=== PATIENT | female | born 1950 | race Caucasian/White ===

== ENCOUNTER 2016-05-31 14:30 | Inpatient (IN) | payer BC ==
[~2016-05-31] VITALS: Ht 157.5 cm; Wt 73.5 kg
[~2016-05-31 14:30] MED LIST: CIPRO500 MG PO; CRESTOR20 M1 PO; CYMBALTA60 M1 PO; ECO81 PO; FELDENE20 MG PO; GLU850 PO; LAC PO; LEVAQUIN LEVA-750 M1 PO; LYRICA75 M1 PO; MEDDP PO; VICODIN1 TA1 PO; VOL50 PO; ZESTRIL20 MG PO; ZOC20 PO
[2016-05-31 15:32] LABS: CALCIUM 9.9 mg/dL (8.5-10.1); CARBON DIOXIDE 23.7 mmol/L (21-32); CREATININE SERUM 1.3 mg/dL (0.6-1.0); POTASSIUM SERUM 4.1 mmol/L (3.5-5.1)
[2016-05-31 15:36] LABS: microscopic required? NO
[2016-05-31 15:37] LABS: ALBUMIN 3.3 g/dL (3.4-5.0); BILIRUBIN TOTAL 0.6 mg/dL (0.20-1.00)
[2016-05-31 15:38] LABS: BASOPHIL % 0.6 % (0-2); PLATELET COUNT 358 x10^3mcL (130-400); RED CELL DISTRIBUTION WIDTH 13.6 % (11.5-14.5)
[2016-05-31 16:09] LABS: UA SPECIFIC GRAVITY 1.025 (1.005-1.035); urine erythrocyte NEGATIVE (NEGATIVE)
[2016-05-31] MEDS ORDERED: LYRICA75 M1 PO (17:45)
[2016-05-31 18:29] VITALS: BP 153/56
[2016-05-31 18:36] LABS: T3 TOTAL 1.11 ng/mL
[2016-05-31 18:39] VITALS: Ht 157.5 cm; Wt 73.5 kg
[2016-05-31 18:46] LABS: CHOLESTEROL/HDL RATIO 3.7
[2016-05-31 19:05] LABS: FREE T4 1.28 ng/dL (0.76-1.46); FREE THYROXINE INDEX 2.9 ug/dL (1.4-4.5); T4(THYROXINE) 8.3 ug/dL (4.7-13.3)
[2016-05-31 19:30] VITALS: BP 132/50
[2016-05-31 21:33] VITALS: BP 141/68
[2016-06-01 06:10] VITALS: BP 121/50
[2016-06-01 06:36] LABS: BASOPHIL % 0.4 % (0-2); PLATELET COUNT 280 x10^3mcL (130-400); RED CELL DISTRIBUTION WIDTH 13.3 % (11.5-14.5)
[2016-06-01 06:45] LABS: CALCIUM 8.6 mg/dL (8.5-10.1); CARBON DIOXIDE 24.6 mmol/L (21-32); CREATININE SERUM 1.2 mg/dL (0.6-1.0); MAGNESIUM 1.8 mg/dL (1.8-2.4); PHOSPHOROUS 3.8 mg/dL (2.5-4.9)
[2016-06-01 09:06] VITALS: BP 121/50
[2016-06-01 09:25] LABS: CK-MB 1.2 ng/mL (0-3.6)
[2016-06-01 10:00] VITALS: BP 125/61
[2016-06-01 14:00] VITALS: BP 122/72
[2016-06-01 18:18] VITALS: BP 133/65
[2016-06-01 21:29] VITALS: BP 129/57
[2016-06-02 05:49] VITALS: BP 149/75
[2016-06-02 06:23] LABS: CALCIUM 8.5 mg/dL (8.5-10.1); CARBON DIOXIDE 25.4 mmol/L (21-32); CREATININE SERUM 1.2 mg/dL (0.6-1.0); MAGNESIUM 1.8 mg/dL (1.8-2.4); PHOSPHOROUS 4.1 mg/dL (2.5-4.9); POTASSIUM SERUM 4.2 mmol/L (3.5-5.1)
[2016-06-02 07:09] LABS: BASOPHIL % 0.4 % (0-2); PLATELET COUNT 233 x10^3mcL (130-400); RED CELL DISTRIBUTION WIDTH 13.8 % (11.5-14.5)
[2016-06-02 09:48] VITALS: BP 141/64
[2016-06-02 12:08] LABS: AMPHETAMINE QUAL UR NONE DETECTED (NEG <=1000)
[2016-06-02 14:03] VITALS: BP 158/79
[2016-06-02] MEDS ORDERED: VICODIN PO (16:14)
[2016-06-02 16:15] VITALS: BP 158/79
== END 2016-06-02 17:47 | disposition home health service (06) | DRG 312 ==
LOC: ED 14:30 → DU 16:31 → MU 16:31 → DU 16:31 → MU 16:31 → DU 18:04 → MU 06-02 05:07
PROVIDERS: Emergency Medicine; Family Medicine; ADMIT Family Medicine
DX: R55 Syncope and collapse (principal); E44.0 Moderate protein-calorie malnutrition; B35.6 Tinea cruris; R15.9 Full incontinence of feces; R32 Unspecified urinary incontinence; M79.7 Fibromyalgia; M25.562 Pain in left knee; M25.561 Pain in right knee; G89.29 Other chronic pain; I10 Essential (primary) hypertension; J44.9 Chronic obstructive pulmonary disease, unspecified; E78.5 Hyperlipidemia, unspecified; F17.210 Nicotine dependence, cigarettes, uncomplicated; Z68.29 Body mass index [BMI] 29.0-29.9, adult; R51 Headache
CPT/HCPCS: 80307; 82962; 83880; 84439; 97110-GP; 97116-GP; 97530-GP; J7030; J7613; Q0092

== ENCOUNTER 2016-06-08 05:12 | Emergency (ER) | payer BC ==
[~2016-06-08 05:12] MED LIST changes: +VICODIN PO
[2016-06-08 06:55] LABS: BASOPHIL % 0.2 % (0-2); PLATELET COUNT 250 x10^3mcL (130-400); RED CELL DISTRIBUTION WIDTH 13.8 % (11.5-14.5)
[2016-06-08 06:58] LABS: CALCIUM 9.3 mg/dL (8.5-10.1); CREATININE SERUM 1.3 mg/dL (0.6-1.0); POTASSIUM SERUM 4.4 mmol/L (3.5-5.1)
--- NOTE | 2016-06-08 15:53 | NUR ---
YULIANA, OPHTHALMIC ASST 06/08/16 12:00 SW CONSULT DUE TO HOME SAFETY CONCERNS. SW MET W/ PT. AT BEDSIDE. PT. IS A READMIT FROM A FEW DAYS AGO & IS WELL KNOWN TO THIS SW. SHE WAS A&OX4. MOOD/ AFFECT WAS LOW IN ENERGY, REPORTING PAIN, BUT COOPERATIVE. REPORTS SHE FELL OUT OF BED AT HOME & WAS UNABLE TO GET UP. [facility]ALTH PHYSICAL THERAPY NEVER FOLLOWED-UP W/ HER UPON DC. SW DISCUSSED SNF PLACEMENT DUE TO PT'S MULTIPE FALLS, FAILED HOME HEALTH PLAN, & INCREASED WEAKNESS. PT. RECOGNIZES HER COMPROMIZED STATE & INABILITY TO MANAGE ON HER OWN AT THIS TIME. SHE HAS NO SUPPORT & STATES SHE HAS NOT SPOKEN W/ HER CIVIL ENGINEERING TECHNICIAN SINCE. SHE WAS AGREEABLE TO SNF PLACEMENT NOW. SW CONTACTED KENAN FELIPE AT [facility] [[phone]] & FAXED CLINICALS TO [facility]. TC TO GILMA AT [facility] [[phone]] & CONFIRMED PT. HAS BEEN ACCEPTED TO . 119B. ACCEPTING PHYSICIAN IS DR. GRIMALDO. ARRANGED GURNEY TRANSPORT W/ [facility] AT 17:00 TODAY. COLLAR CUTTER [LAMAR] & FOLLOWING RN [] NOTIFIED OF THE ABOVE DCP.
[2016-06-08 18:37] VITALS: BP 157/87
== END 2016-06-08 18:37 | disposition home or self-care (01) ==
LOC: ED 05:12
PROVIDERS: Emergency Medicine
DX: S39.012A Strain of muscle, fascia and tendon of lower back, initial encounter (principal); S16.1XXA Strain of muscle, fascia and tendon at neck level, initial encounter; S40.012A Contusion of left shoulder, initial encounter; I10 Essential (primary) hypertension; R51 Headache; J44.9 Chronic obstructive pulmonary disease, unspecified; M19.90 Unspecified osteoarthritis, unspecified site; M79.7 Fibromyalgia; Z88.1 Allergy status to other antibiotic agents; Z88.2 Allergy status to sulfonamides; W06.XXXA Fall from bed, initial encounter; Y93.84 Activity, sleeping; Y92.89 Other specified places as the place of occurrence of the external cause; Y99.8 Other external cause status

== ENCOUNTER 2016-06-23 08:05 | Emergency (ER) | payer BC ==
--- NOTE | 2016-06-23 15:01 | NUR ---
SOCIAL SERVICE NOTE: FOLLOW-UP REQUESTED FOR THIS PT WHO CAME INTO THE ER S/P FALL AT HOME. PT IS FAMILIAR TO ME FROM PREVIOUS HOSPITAL VISITS. SHE LIVES ALONE AND HAS NO FAMILY. SUPPORT SYSTEM IS LIMITED. SHE CANNOT AFFORD TO PAY FOR HOME CARE AND SHE IS NOT ELIGIBLE FOR THE [facility] PROGRAM ([facility]) SHE IS NORMALLY CAPABLE OF CARING FOR HERSELF BUT HAS HAD MULTIPLE FALLS WELL CHRONIC PAIN ISSUES. IN SPITE OF HER INCREASING NEED FOR HELP AND HER AWARENESS THAT HER HOME ENVIRONMENT MAY NOT BE SAFE FOR HER, SHE HAS RESISTED LOOKING AT OTHER OPTIONS. ADULT PROTECTIVE SERVICES HAS BEEN CALLED IN THE PAST A RESULT. I MET WITH THE PT AT BEDSIDE. SHE WAS A/O AND SOMEWHAT COPERATIVE WITH THE DISCUSSION. SHE DID NOT VOLUNTEER INFORMATION BUT WAS ABLE TO ANSWER QUESTIONS APPROPRIATELY. SHE CONTINUES TO SAY THAT SHE CANNOT AFFORD TO PAY FOR ASSISTANCE AND DOES NOT WANT TO GO TO A LONG-TERM CELEBRITY MANAGER, WHICH WOULD ALSO REQUIRE THAT SHE APPLY FOR MEDI-KANDIS, WHICH SHE HAS NOT PURSUED. I REVIEWED ALL AVAILABLE OPTIONS TO HER BUT SHE WAS MOSTLY FOCUSED ON HOW "UNFAIR" HER SITUATION WAS. I EXPLAINED THAT WE HAVE BEEN IN CONTACT WITH HER INSURANCE AND THEY WILL NOT APPROVE ANOTHER LONG-TERM PLAN NOR WILL THEY COVER HER TRANSPORTATION HOME. THEY WILL COVER A SINGLE NURSING SAFETY VISIT THROUGH [facility]. I OFFERED TO MAKE TRANPORTATION ARRANGEMENTS FOR HER EITHER WITH HER FRIEND, FILIBERTO, OR WITH A MEDICAL VAN AND SHE WAS AGREEABLE. I ALSO OFFERED TO ARRANGE FOR THE HOSPITAL MEDI-KANDIS COORDINATOR (LEANNA FROM [facility]) TO CONTACT HER ONCE SHE GETS HOME TO ASSIST WITH AN APPLICATION WELL HAVE A BOARD AND MERCURY PURIFIER, ALEC FROM "[facility]", CONTACT HER TO ASSIST WITH POSSIBLE PLACEMENT ALTERNATIVES.SHE WAS AGREEABLE WITH BOTH OF THESE SUGGESTIONS AND WILLING TO SPEAK WITH BOTH LEANNA AND ALEC. I INFORMED HER THAT I WILL BE MAKING ANOTHER REFERRAL TO ADULT PROTECTIVE SERVICES TO ASSESS HER SAFETY NEEDS. (APS REFERRAL/INTAKE # [id number]) I CONTACTED [facility]PS AND SPOKE WITH MARI ([phone]) WHO HAS FOLLOWED THIS PT IN THE RECENT PAST. SHE REQUESTED THAT I MAKE A NEW REFERRAL TODAY WHICH WAS DONE. I SPOKE WITH LEANNA AND ALEC, AND THEY WILL FOLLOW WITH THE PT BY PHONE TOMORROW TO SEE HOW THEY CAN ASSIST HER WITH HER NEEDS. I MADE ARRANGEMENTS FOR PT TO BE TRANSPORTED BY [facility] ([phone]) WITH A 1700 PICK-UP. I DID SPEAK WITH THE PT'S FRIEND, FILIBERTO, WELL ([phone]). HE INDICATED THAT HE LIVES IN [place] AND IS NOT WELL TODAY AND THEREFORE, UNABLE TO TRANSPORT. HE DID AGREE TO FOLLOW-UP WITH THE PT LATER THIS EVENING TO ENSURE THAT SHE GOT HOME OK. NURSING MADE AWARE OF THE ABOVE. NO FURTHER FOLLOW-UP NEEDED AT THIS TIME.
[2016-06-23 17:30] VITALS: BP 140/100
== END 2016-06-23 18:43 | disposition home or self-care (01) ==
LOC: ED 08:05
DX: S40.012A Contusion of left shoulder, initial encounter (principal); I10 Essential (primary) hypertension; J44.9 Chronic obstructive pulmonary disease, unspecified; M79.7 Fibromyalgia; M19.90 Unspecified osteoarthritis, unspecified site; E11.9 Type 2 diabetes mellitus without complications; W06.XXXA Fall from bed, initial encounter; Z88.0 Allergy status to penicillin; Z88.1 Allergy status to other antibiotic agents; Z88.2 Allergy status to sulfonamides; Y93.89 Activity, other specified; Y99.8 Other external cause status; Y92.89 Other specified places as the place of occurrence of the external cause
CPT/HCPCS: Q0092

== ENCOUNTER 2016-10-23 22:07 | Inpatient (IN) | payer BC ==
[~2016-10-23] VITALS: Ht 154.9 cm; Wt 73.2 kg
[~2016-10-23 22:07] MED LIST changes: +ANC1I IV; +LIPI20 PO; +NOR10T PO; +XARELTO15 M1 PO
[2016-10-23 22:54] LABS: BASOPHIL % 0.5 % (0-2); RED CELL DISTRIBUTION WIDTH 13.5 % (11.5-14.5)
[2016-10-23 23:05] LABS: PLATELET COUNT 437 x10^3mcL (130-400)
[2016-10-23 23:10] LABS: CALCIUM 9.8 mg/dL (8.5-10.1); CARBON DIOXIDE 19.1 mmol/L (21-32); CREATININE SERUM 1.4 mg/dL (0.6-1.0); POTASSIUM SERUM 4.1 mmol/L (3.5-5.1)
[2016-10-23 23:24] LABS: BILIRUBIN TOTAL 0.46 mg/dL (0.20-1.00); TOTAL PROTEIN, SERUM 7.5 g/dL (6.4-8.2)
[2016-10-23 23:25] LABS: ALBUMIN 3.1 g/dL (3.4-5.0)
[2016-10-23 23:26] LABS: CK-MB 1.2 ng/mL (0-3.6)
[2016-10-24] VITALS (8 sets, daily range): BP systolic 86–119; BP diastolic 41–69
[2016-10-24 00:47] LABS: microscopic required? YES; urine erythrocyte TRACE (NEGATIVE)
[2016-10-24 01:35] LABS: MAGNESIUM 2.6 mg/dL (1.8-2.4); PHOSPHOROUS 4.7 mg/dL (2.5-4.9)
[2016-10-24 01:37] LABS: CHOLESTEROL/HDL RATIO 6.3
[2016-10-24 02:03] LABS: FREE THYROXINE INDEX 2.6 ug/dL (1.4-4.5); T4(THYROXINE) 6.7 ug/dL (4.7-13.3)
[2016-10-24 02:06] LABS: FREE T4 1.15 ng/dL (0.76-1.46)
[2016-10-24 02:54] LABS: T3 TOTAL 0.92 ng/mL
[2016-10-25 05:46] VITALS: BP 100/52
[2016-10-25 06:35] LABS: BASOPHIL % 0.5 % (0-2); PLATELET COUNT 309 x10^3mcL (130-400); RED CELL DISTRIBUTION WIDTH 13.4 % (11.5-14.5)
[2016-10-25 07:11] LABS: CALCIUM 8.5 mg/dL (8.5-10.1); CARBON DIOXIDE 21.3 mmol/L (21-32); CREATININE SERUM 1.4 mg/dL (0.6-1.0); PHOSPHOROUS 4.2 mg/dL (2.5-4.9); POTASSIUM SERUM 4.2 mmol/L (3.5-5.1)
[2016-10-25 08:18] VITALS: BP 95/54
[2016-10-25 12:53] VITALS: BP 103/43
[2016-10-25 17:05] VITALS: BP 127/58
[2016-10-25 21:38] VITALS: BP 103/45
[2016-10-26 05:56] VITALS: BP 116/58
[2016-10-26 07:13] LABS: CALCIUM 8.7 mg/dL (8.5-10.1); CREATININE SERUM 1.2 mg/dL (0.6-1.0)
[2016-10-26 07:33] LABS: BASOPHIL % 0.6 % (0-2); PLATELET COUNT 313 x10^3mcL (130-400); RED CELL DISTRIBUTION WIDTH 13.6 % (11.5-14.5)
[2016-10-26 09:33] VITALS: BP 117/50
[2016-10-26 13:33] VITALS: BP 108/60
[2016-10-26 17:44] VITALS: BP 111/69
[2016-10-26 21:45] VITALS: BP 106/44
[2016-10-27 06:25] VITALS: BP 102/42
[2016-10-27 06:31] LABS: BASOPHIL % 0.4 % (0-2); PLATELET COUNT 305 x10^3mcL (130-400); RED CELL DISTRIBUTION WIDTH 13.6 % (11.5-14.5)
[2016-10-27 06:37] LABS: CALCIUM 8.6 mg/dL (8.5-10.1); CARBON DIOXIDE 19.7 mmol/L (21-32); CREATININE SERUM 1.3 mg/dL (0.6-1.0)
[2016-10-27 06:38] LABS: POTASSIUM SERUM 5.7 mmol/L (3.5-5.1)
[2016-10-27 09:09] VITALS: BP 124/57
[2016-10-27 14:01] VITALS: BP 137/66
[2016-10-27 17:02] VITALS: BP 120/57
[2016-10-27 22:03] VITALS: BP 135/67
[2016-10-28 08:55] LABS: CALCIUM 8.9 mg/dL (8.5-10.1); CARBON DIOXIDE 23.7 mmol/L (21-32); CREATININE SERUM 1.2 mg/dL (0.6-1.0)
[2016-10-28 08:59] LABS: BASOPHIL % 0.4 % (0-2); PLATELET COUNT 291 x10^3mcL (130-400); RED CELL DISTRIBUTION WIDTH 13.5 % (11.5-14.5)
[2016-10-28 10:21] VITALS: BP 96/45
[2016-10-28 16:43] VITALS: BP 124/57
[2016-10-28 21:58] VITALS: BP 110/50
[2016-10-29 05:39] VITALS: BP 115/49
[2016-10-29 06:07] LABS: BASOPHIL % 0.4 % (0-2); PLATELET COUNT 314 x10^3mcL (130-400); RED CELL DISTRIBUTION WIDTH 13.6 % (11.5-14.5)
[2016-10-29 06:31] LABS: CALCIUM 9.3 mg/dL (8.5-10.1); CARBON DIOXIDE 20.4 mmol/L (21-32); CREATININE SERUM 1.2 mg/dL (0.6-1.0); POTASSIUM SERUM 4.7 mmol/L (3.5-5.1)
[2016-10-29 09:00] VITALS: BP 156/64
[2016-10-29 15:11] VITALS: BP 156/64
[2016-10-29 23:06] VITALS: BP 117/55
[2016-10-30 05:33] VITALS: BP 122/71
[2016-10-30 07:03] LABS: BASOPHIL % 0.3 % (0-2); PLATELET COUNT 310 x10^3mcL (130-400); RED CELL DISTRIBUTION WIDTH 13.7 % (11.5-14.5)
[2016-10-30 07:48] LABS: CALCIUM 9.1 mg/dL (8.5-10.1); CARBON DIOXIDE 24.7 mmol/L (21-32); CREATININE SERUM 1.3 mg/dL (0.6-1.0); POTASSIUM SERUM 4.6 mmol/L (3.5-5.1)
[2016-10-30 09:33] VITALS: BP 147/66
[2016-10-30 17:44] VITALS: BP 115/79
[2016-10-30 21:52] VITALS: BP 97/49
[2016-10-31 05:28] VITALS: BP 104/46
[2016-10-31 07:18] LABS: BASOPHIL % 0.5 % (0-2); PLATELET COUNT 303 x10^3mcL (130-400); RED CELL DISTRIBUTION WIDTH 14.1 % (11.5-14.5)
[2016-10-31 07:33] LABS: CALCIUM 8.6 mg/dL (8.5-10.1); CARBON DIOXIDE 22.7 mmol/L (21-32); CREATININE SERUM 1.1 mg/dL (0.6-1.0); POTASSIUM SERUM 4.4 mmol/L (3.5-5.1)
[2016-10-31 08:46] VITALS: BP 98/52
[2016-10-31 17:30] VITALS: BP 145/58
[2016-11-01 05:26] VITALS: BP 133/55
[2016-11-01 06:33] LABS: CALCIUM 8.8 mg/dL (8.5-10.1); CARBON DIOXIDE 24.4 mmol/L (21-32); CREATININE SERUM 1.2 mg/dL (0.6-1.0); POTASSIUM SERUM 4.7 mmol/L (3.5-5.1)
[2016-11-01 06:35] LABS: BASOPHIL % 0.6 % (0-2); PLATELET COUNT 287 x10^3mcL (130-400); RED CELL DISTRIBUTION WIDTH 13.8 % (11.5-14.5)
[2016-11-01 10:01] VITALS: BP 118/48
[2016-11-01 17:36] VITALS: BP 113/59
[2016-11-01 22:17] VITALS: BP 135/52
[2016-11-02 05:54] VITALS: BP 142/56
[2016-11-02 06:51] LABS: BASOPHIL % 0.7 % (0-2); PLATELET COUNT 268 x10^3mcL (130-400); RED CELL DISTRIBUTION WIDTH 13.7 % (11.5-14.5)
[2016-11-02 07:11] LABS: CALCIUM 8.9 mg/dL (8.5-10.1); CARBON DIOXIDE 27.8 mmol/L (21-32); CREATININE SERUM 1.1 mg/dL (0.6-1.0)
[2016-11-02 10:00] VITALS: BP 128/54
[2016-11-02 16:50] VITALS: BP 143/55
[2016-11-02 21:53] VITALS: BP 129/43
[2016-11-03 05:27] VITALS: BP 123/53
[2016-11-03 09:56] VITALS: BP 123/53
[2016-11-03 10:03] VITALS: BP 135/55
[2016-11-03 16:03] VITALS: BP 135/55
[2016-11-03] MEDS ORDERED: COL100 PO (16:05)
[2016-11-03] MEDS ORDERED: BEN50 PO (16:11)
[2016-11-03] MEDS ORDERED: PROTONIX40 MG/Pac1 PO (16:11)
[2016-11-03] MEDS ORDERED: LINEZOLID600 MG PO ×2 (18:16→18:23)
[2016-11-03] MEDS ORDERED: CLINDAMYCIN HC300 MG PO (18:16)
[2016-11-03 18:54] VITALS: BP 134/59
== END 2016-11-03 21:12 | DRG 853 ==
LOC: ED 22:07 → MU 23:49 → DU 23:49 → MU 23:49 → DU 10-24 01:50 → MU 10-26 16:15
PROVIDERS: Emergency Medicine; Family Medicine; ADMIT Family Medicine
PROC: 0JBM0ZZ Excision of Left Upper Leg Subcutaneous Tissue and Fascia, Open Approach (ICD-10-PCS; principal; 2016-10-26)
DX: A41.9 Sepsis, unspecified organism (principal); L89.223 Pressure ulcer of left hip, stage 3; N17.0 Acute kidney failure with tubular necrosis; L03.116 Cellulitis of left lower limb; L03.314 Cellulitis of groin; N39.0 Urinary tract infection, site not specified; E44.0 Moderate protein-calorie malnutrition; R65.20 Severe sepsis without septic shock; B95.2 Enterococcus as the cause of diseases classified elsewhere; B96.89 Other specified bacterial agents as the cause of diseases classified elsewhere; I12.9 Hypertensive chronic kidney disease with stage 1 through stage 4 chronic kidney disease, or unspecified chronic kidney disease; N18.3 Chronic kidney disease, stage 3 (moderate); E86.0 Dehydration; E11.51 Type 2 diabetes mellitus with diabetic peripheral angiopathy without gangrene; M79.7 Fibromyalgia; E78.5 Hyperlipidemia, unspecified; F41.1 Generalized anxiety disorder; F32.9 Major depressive disorder, single episode, unspecified; F17.210 Nicotine dependence, cigarettes, uncomplicated; E66.9 Obesity, unspecified; Z68.30 Body mass index [BMI] 30.0-30.9, adult; Z22.322 Carrier or suspected carrier of Methicillin resistant Staphylococcus aureus; Z16.24 Resistance to multiple antibiotics
CPT/HCPCS: 82962; 83880; 84439; 94150; 97110-GP; 97116-GP; 97530-GP; A6242; J0690; J0696; J1170; J1956; J2001; J2270; J2405; J3490; J7030; J7613; Q0092; Q0163

== ENCOUNTER 2018-02-27 14:30 | Inpatient (IN) | payer BC ==
[~2018-02-27] VITALS: Ht 157.5 cm; Wt 75.3 kg
[~2018-02-27 14:30] MED LIST changes: +BEN50 PO; +CLINDAMYCIN HC300 MG PO; +COL100 PO; +LINEZOLID600 MG PO; +PROTONIX40 MG/Pac1 PO
[2018-02-27 15:45] LABS: BASOPHIL % 0.4 % (0-2); PLATELET COUNT 265 x10^3mcL (130-400); RED CELL DISTRIBUTION WIDTH 12.7 % (11.5-14.5)
[2018-02-27 15:53] LABS: CALCIUM 9.8 mg/dL (8.5-10.1); CARBON DIOXIDE 22.3 mmol/L (21-32); CREATININE SERUM 1.2 mg/dL (0.6-1.0); POTASSIUM SERUM 4.5 mmol/L (3.5-5.1)
[2018-02-27 16:09] LABS: ALBUMIN 3.3 g/dL (3.4-5.0); BILIRUBIN TOTAL 0.2 mg/dL (0.20-1.00); TOTAL PROTEIN, SERUM 7.3 g/dL (6.4-8.2)
[2018-02-27 16:16] LABS: microscopic required? YES; urine erythrocyte 3+ (NEGATIVE)
[2018-02-27 20:13] LABS: MAGNESIUM 2.1 mg/dL (1.8-2.4); PHOSPHOROUS 3.6 mg/dL (2.5-4.9)
[2018-02-27 20:23] LABS: FREE T4 0.81 ng/dL (0.76-1.46); FREE THYROXINE INDEX 1.9 ug/dL (1.4-4.5); T4(THYROXINE) 5.8 ug/dL (4.7-13.3)
[2018-02-27 20:25] LABS: T3 TOTAL 0.97 ng/mL
[2018-02-27 21:45] VITALS: BP 145/85
[2018-02-28 05:59] VITALS: BP 117/63
[2018-02-28 06:13] LABS: BASOPHIL % 0.4 % (0-2); PLATELET COUNT 248 x10^3mcL (130-400); RED CELL DISTRIBUTION WIDTH 12.4 % (11.5-14.5)
[2018-02-28 06:31] LABS: CALCIUM 8.7 mg/dL (8.5-10.1); CARBON DIOXIDE 24.8 mmol/L (21-32); MAGNESIUM 1.8 mg/dL (1.8-2.4); PHOSPHOROUS 3.2 mg/dL (2.5-4.9); POTASSIUM SERUM 4.7 mmol/L (3.5-5.1)
[2018-02-28 09:16] VITALS: BP 113/42
[2018-02-28 17:28] VITALS: BP 113/53
[2018-02-28 22:03] VITALS: BP 119/60
[2018-03-01 06:07] VITALS: BP 130/46
[2018-03-01 06:32] LABS: CALCIUM 8.7 mg/dL (8.5-10.1); CARBON DIOXIDE 21.1 mmol/L (21-32); CREATININE SERUM 1.2 mg/dL (0.6-1.0); MAGNESIUM 1.7 mg/dL (1.8-2.4); POTASSIUM SERUM 4.5 mmol/L (3.5-5.1)
[2018-03-01 06:39] LABS: BASOPHIL % 0.1 % (0-2); PLATELET COUNT 238 x10^3mcL (130-400); RED CELL DISTRIBUTION WIDTH 12.7 % (11.5-14.5)
[2018-03-01 09:21] VITALS: BP 144/65
[2018-03-01 13:18] VITALS: BP 111/54
[2018-03-01 16:43] VITALS: BP 125/63
[2018-03-01 22:12] VITALS: BP 113/48
[2018-03-02 06:06] VITALS: BP 150/60
[2018-03-02 06:17] LABS: BASOPHIL % 0.5 % (0-2); PLATELET COUNT 220 x10^3mcL (130-400); RED CELL DISTRIBUTION WIDTH 12.5 % (11.5-14.5)
[2018-03-02 07:01] LABS: CALCIUM 8.6 mg/dL (8.5-10.1); CARBON DIOXIDE 22.2 mmol/L (21-32); CREATININE SERUM 1.2 mg/dL (0.6-1.0); MAGNESIUM 1.8 mg/dL (1.8-2.4); PHOSPHOROUS 3.4 mg/dL (2.5-4.9); POTASSIUM SERUM 4.4 mmol/L (3.5-5.1)
[2018-03-02 08:17] VITALS: BP 140/62
[2018-03-02 12:18] VITALS: BP 137/58
[2018-03-02 16:15] VITALS: BP 153/74
[2018-03-02 21:55] VITALS: BP 120/52
[2018-03-03 04:30] VITALS: BP 136/69
[2018-03-03 10:29] VITALS: BP 114/43
[2018-03-03 14:01] VITALS: BP 116/57
[2018-03-03 17:42] VITALS: BP 116/57
[2018-03-03 18:24] VITALS: Ht 157.5 cm; Wt 75.3 kg
== END 2018-03-03 18:06 | disposition home or self-care (01) | DRG 377 ==
LOC: ED 14:30 → DU 19:34
PROVIDERS: Emergency Medicine; Family Medicine; Internal Medicine
DX: K57.31 Diverticulosis of large intestine without perforation or abscess with bleeding (principal); N17.0 Acute kidney failure with tubular necrosis; N39.0 Urinary tract infection, site not specified; E44.1 Mild protein-calorie malnutrition; K60.2 Anal fissure, unspecified; E11.9 Type 2 diabetes mellitus without complications; E86.0 Dehydration; K59.00 Constipation, unspecified; J44.9 Chronic obstructive pulmonary disease, unspecified; G89.29 Other chronic pain; M25.562 Pain in left knee; M25.561 Pain in right knee; M79.7 Fibromyalgia; I10 Essential (primary) hypertension; M19.90 Unspecified osteoarthritis, unspecified site; E78.5 Hyperlipidemia, unspecified; Z74.01 Bed confinement status; Z68.29 Body mass index [BMI] 29.0-29.9, adult; F17.210 Nicotine dependence, cigarettes, uncomplicated
CPT/HCPCS: 82962; 84439; 90658; 97110-GP; 97530-GP; C9113; J1956; J7030; Q0092

== ENCOUNTER 2018-09-29 16:16 | Inpatient (IN) | payer BC ==
[~2018-09-29] VITALS: Ht 154.9 cm; Wt 75.7 kg
--- NOTE | 2018-09-29 16:35 | NUR ---
PT BROUGHT IN TO ED BY LOREN WITH C/O GRAVELY DISABLED, PER MEDIC PT WAS FOUND IN HER OWN BED COVERED IN FECAL MATTER. PT REPORTS HER SURGICAL SCHEDULER HAS NOT BEEN TO HER HOME IN 10 DAYS AND HAS BEEN SELF BEDRIDDEN FOR MONTHS. AT BEDSIDE PT IS AAOX4, RESPS E/U, PERRLA. ALSO, IS CALM AND COOPERATIVE. PT UNABLE TO AMBULATE FOR SHE HAS "KNEE PROBLEMS AND THEY NEED TO BE REPLACED" PT PLACED ON MONITOR. PT ORIENTED TO ROOM, USE OF CALL DURBIN AND BED IN LOWEST POSITION. BED RAIL IS UP X1 FOR SAFETY.
[2018-09-29 16:42] LABS: BASOPHIL % 0.8 % (0-2); PLATELET COUNT 282 x10^3mcL (130-400); RED CELL DISTRIBUTION WIDTH 12.8 % (11.5-14.5)
[2018-09-29 16:56] LABS: CALCIUM 9.9 mg/dL (8.5-10.1); CARBON DIOXIDE 25.3 mmol/L (21-32); POTASSIUM SERUM 3.8 mmol/L (3.5-5.1)
--- NOTE | 2018-09-29 17:00 | NUR ---
PT GIVEN A BED BATH BY MYSELF AND EMT CONOR. SKIN BREAKDOWN NOTED IN PELVIC REGION AND BUTTOCK REGION. PT PLACED IN CLEAN GOWN AND LINEN. PT CALM AND COOPERATIVE WITH PROCEDURE.
[2018-09-29 17:01] LABS: ALBUMIN 3.5 g/dL (3.4-5.0); BILIRUBIN TOTAL 0.3 mg/dL (0.20-1.00)
[2018-09-29 17:37] LABS: microscopic required? YES; urine erythrocyte 1+ (NEGATIVE)
--- NOTE | 2018-09-29 18:15 | NUR ---
PT RESTING IN POSITION OF COMFORT. NO ACUTE DISTRESS NOTED AT THIS MOMENT. PT AAOX4, RESPS E/U, SKIN IS DRY.
--- NOTE | 2018-09-29 19:13 | NUR ---
REPORT HAND-OFF TO ISAAC SIU TO ASSUME CARE.
--- NOTE | 2018-09-29 19:20 | NUR ---
RECEIVED REPORT FROM JAMES GRAY AND ASSUMED CARE OF PATIENT. PT. LAYING ON GURNEY IN POSITION OF COMFORT. BREATHING E/U. NOT IN ANY APPARENT DISTRESS. ON FUL PRINCIPAL QUALITY ENGINEER. CALL LITHT IN RECH. WILL CONTINUE TO MONITOR.
--- NOTE | 2018-09-29 20:00 | NUR ---
PT. GIVEN SANDWICH AND JUICE PER HER REQUEST. TOLERATING WELL.
--- NOTE | 2018-09-29 20:05 | NUR ---
PICTIRES OF WOUNDS TO BUTTOCKS, BILATERAL THIGH AREAS, AND PERINEAL AREA TAKEN AND PLACED IN CHART.
[2018-09-29 20:13] LABS: CHOLESTEROL 309 mg/dL (<200); CHOLESTEROL/HDL RATIO 9.4; HDL CHOLESTEROL 33 mg/dL (40-60); PHOSPHOROUS 3.6 mg/dL (2.5-4.9); TRIGLYCERIDES 542 mg/dL (<150)
--- NOTE | 2018-09-29 20:15 | NUR ---
PT. REPROTS SHE DOES NOT TAKE ANY MEDS AT HOME. NO MED TO RECONCILE
[2018-09-29 20:17] LABS: AMPHETAMINE QUAL UR NONE DETECTED (See below)
[2018-09-29 20:21] LABS: T3 TOTAL 0.93 ng/mL
--- NOTE | 2018-09-29 20:27 | NUR ---
REPORT GIVEN TO ELYSIA GRAY ON MEDSURG UNIT FOR FURTHER CARE OF PATIENT. ALL QUESTIONS AND CONCERS ADDRESSED.
[2018-09-29 20:31] LABS: FREE T4 1.05 ng/dL (0.76-1.46); FREE THYROXINE INDEX 2.5 ug/dL (1.4-4.5); T4(THYROXINE) 6.8 ug/dL (4.7-13.3)
--- NOTE | 2018-09-29 20:50 | NUR ---
RECEIVED PT VIA GUERNEY FROM E/D, ACCOMPANIED BY TRANSPORTER. PT A/A/O X 4, CALM, COOPERATIVE; WEARS CONTACTS (W/ PT). DENIES CHEST PAIN OR DISCOMFORT AT THIS TIME. SCD BY BEDSIDE. NO ACUTE RESPIRATORY DISTRESS NOTED. ABD SOFT, ROUND, NON-TENDER, NORMOACTIVE BOWEL SOUNDS X 4 QUADS, LAST BM 09/24/18, SOFT. INCONTINENT OF BOWEL/BLADDER. ON F/C 16FR, INSTALLED 09/29/18, DRAINING CLEAR YELLOW URINE. GENERALIZED WEAKNESS, BEDBOUND, FALL RISK PROTOCOL IN PLACE. BILATERAL BUTTOCKS AND GENITAL AREA INCONTINENT DERMATITIS; LALM IN PLACE FOR SKIN MANAGEMENT. C/O INTERMITTENT GENERALIZED BODY ACHE 4/10, EXACERBATED BY MOVEMENT AND TWISTING, RELIEVED BY REST AND PAIN MEDICATIONS. IV SITE LAC 20G, CDI. ORIENTED PT TO ROOM, BED CONTROLS, CALL LIGHT SYSTEM. SIDE RAILS UP X 2, BED IN LOW POSITION. WILL ENDORSE TO ISAAC NAIDU.
--- NOTE | 2018-09-29 20:55 | NUR ---
PT. TRANSPORTED TO [facility] VIA [facility]. PT. AAOX4, TALKING AND RESPONDING APPROPRIATELY, BREATHING E/U. TRANSPORTED BY NAM [facility]OTO. STABLE AT TIME OF TRANSFER.
[2018-09-29 21:23] VITALS: BP 145/70
--- NOTE | 2018-09-29 22:07 | NUR ---
PT DENIES PAIN AT THIS TIME. CURRENTLY IN SUPINE POSITION. PT ABLE TO TURN HERSELF IN BED BUT WILL HELP WITH REPOSITIONING IN ORDER TO PREVENT FURTHER SKIN BREAKDOWN. PT STATES SHE IS "TIRED AND HUNGRY" SAFETY MEASURES IN PLACE. BED IN LOWEST POSITION. CALL LIGHT WITHIN REACH. WILL CONTINUE TO MONITOR.
[2018-09-30 05:23] VITALS: BP 133/44
--- NOTE | 2018-09-30 05:30 | NUR ---
PT SLEPT THROUGHOUT THE SHIFT. BREATHING EVEN AND UNLABORED. NO SIGNIGICANT CHANGES NOTED. WILL ENDORSE TO DAY SHIFT RN.
[2018-09-30 06:27] LABS: BASOPHIL % 0.5 % (0-2); PLATELET COUNT 239 x10^3mcL (130-400); RED CELL DISTRIBUTION WIDTH 13.1 % (11.5-14.5)
[2018-09-30 06:48] LABS: CALCIUM 8.5 mg/dL (8.5-10.1); CARBON DIOXIDE 20.9 mmol/L (21-32); CREATININE SERUM 1.1 mg/dL (0.6-1.0); POTASSIUM SERUM 3.7 mmol/L (3.5-5.1)
--- NOTE | 2018-09-30 07:03 | NUR ---
RECEIVED BEDSIDE REPORT FROM MATTRESS FILLER NURSE. PATIENT STABLE, NO APPARENT SIGNS OF PAIN, SOB, OR RESPIRATORY DISTRESS. ON ROOM AIR. IV TO LAC PATENT INTACT, NO EDEMA OR ERYTHEMA NOTED TO SITE. RESTING COMFORTABLY IN BED. DENIES OTHER NEED AT THIS TIME. CALL LIGHT AND PHONE WITHIN REACH. BED IN LOW POSITION. QUESTIONS AND CONCERNS ADDRESSED. SAFETY PRECAUTIONS IN [facility]
--- NOTE | 2018-09-30 08:00 | NUR ---
CONTACTED MD REAGAN REGARDING PATIENT'S PAST MEDICAL HISTROY OF DM2. NO ACCUCHECKS ORDERED. PER MD LAST A1C IS WNL 5.8. NO FURTHER ORDERS.
--- NOTE | 2018-09-30 08:29 | NUR ---
PHYSICAL THERAPY AT BEDSIDE.
--- NOTE | 2018-09-30 08:29 | NUR ---
ADMINISTERED MEDICATION PER EMAR. PATIENT TOLORATED WELL. EDUCATED ON NEED FOR MEDICATION WELL ADVERSE EFFECTS TO REPORT. PATIENT VERBALIZED UNDERSTANDING. QUESTIONS AND CONCERNS ADDRESSED. SAFETY PRECAUTIONS IN PLACE.
[2018-09-30 09:34] VITALS: BP 115/54
--- NOTE | 2018-09-30 10:42 | NUR ---
PATIENT IS STABLE NO APPARENT SIGNS OF PAIN, SOB, OR RESPIRATORY DISTRESS. PATIENT DENIES TOWNSEND, OR DIZZNESS. PATIENT DENIES OTHER NEEDS AT THIS TIME. QUESTIONS AND CONCERNS ADDRESSED. SAFETY PRECAUTIONS IN PLACE.
--- NOTE | 2018-09-30 13:32 | NUR ---
PHOTGRAPHED WOUNDS PHOTOS IN CHART. PATIENT TOLRATED WELL. PATIENT DENIES PAIN AT THIS TIME. SAFETY PRECAUTIONS IN PLACE.
--- NOTE | 2018-09-30 14:46 | NUR ---
PATIENT STABLE NO APPARENT SIGNS OF PAIN, SOB, OR RESPIRATORY DISTRESS. PATIENT DENIES OTHER NEEDS AT THIS TIME. SAFETY PRECAUTIONS IN [place].
[2018-09-30 17:15] VITALS: BP 122/51
--- NOTE | 2018-09-30 18:14 | NUR ---
PATIENT IS STABLE, NO APPARENT SIGNS OF PAIN, SOB, OR RESPIRATORY DISTRESS. IV TO LAC INFUSING WELL NS AT 100ML/HR. NO EDEMA OR ERYTHEEMA NOTED TO SITE. SCD'S IN PLACE. PATIENT ON ROOM AIR. CALL LIGHT AND PHONE WITHIN REACH. BED IN LOW POSITION. ON AIR MATTRESS. QUESTIONS AND CONCERNS ADDRESSED. SAFETY PRECAUTIONS IN PLACE. WILL ENDORSE CARE TO CHRONIC DISEASE MANAGER NURSE.
--- NOTE | 2018-09-30 19:00 | NUR ---
PT RECEIVED FROM THE DAY SHIFT RN. PT IS ALERT AND ORIENTED X4, CALM AND COOPERATIVE WITH CARE. PT COMPLAINS OF BUTTOCK PAIN, PT STATES ITS 8/10 SHARP PAIN. NO OTHER CONCERNS OR COMPLAINTS AT THIS TIME. SAFETY AND COMFORT MEASURES MAINTAINED, BED IN LOWEST POSITION, CALL LIGHT WITHIN REACH.
[2018-09-30 20:25] VITALS: BP 131/62
--- NOTE | 2018-10-01 00:13 | NUR ---
PT IS RESTING IN BED WITH EYES CLOSED AT THIS TIME. NO ACUTE DISTRESS NOTED. PT HAS BEEN CALM AND COOPERATIVE WITH CARE AT THIS TIME. SAFETY AND COMFORT MEASURES MAINTAINED, BED IN LOWEST POSITION, CALL LIGHT WITHIN REACH.
--- NOTE | 2018-10-01 05:19 | NUR ---
PT HAS RESTED IN VERY SHORT INTERVALS THROUGHOUT THE SHIFT. PT HAS BEEN CALM AND COOPERATIVE WITH CARE, NO ACUTE DISTRESS NOTED. PT HAS NO COMPLAINT OF PAIN AT THIS TIME. IV INFUSING AND INTACT. SMITH IN PLACE DRAINING FREELY. SAFETY AND COMFORT MEASURES MAINTAINED, BED IN LOWEST POSITION, CALL LIGHT WITHIN REACH. WILL ENDORSE CONTINUITY OF CARE TO THE ONCOMING RN.
[2018-10-01 06:12] VITALS: BP 133/64
--- NOTE | 2018-10-01 07:00 | NUR ---
RECEIVED BEDSIDE REPORT FROM TEA BAG PACKER NURSE. PATIENT IS STABLE NO APPARENT SIGNS OF PAIN, SOB, OR RESPIRATORY DISTRESS, ON ROOM AIR. IV TO LAC INFUSING NS @100ML/HR. NO EDEMA OR ERYTHEMA NOTED AT SITE. SCD'S IN PLACE. SMITH CATH IN PLACE DRAINING YELLOW URINE. BED IN LOW POSITION, CALL LIGHT AND PHONE WITHIN REACH. SAFETY PRECAUTIONS IN PLACE.
[2018-10-01 07:07] LABS: BASOPHIL % 0.4 % (0-2); PLATELET COUNT 234 x10^3mcL (130-400); RED CELL DISTRIBUTION WIDTH 12.8 % (11.5-14.5)
--- NOTE | 2018-10-01 07:15 | NUR ---
PHYSICAL ASSESSMENT COMPLETED PLEASE SEE PROBLEM FOCUSED CARE FOR DETAILS.
[2018-10-01 07:20] LABS: CALCIUM 8.5 mg/dL (8.5-10.1); CARBON DIOXIDE 22.1 mmol/L (21-32); MAGNESIUM 1.8 mg/dL (1.8-2.4); PHOSPHOROUS 3.7 mg/dL (2.5-4.9); POTASSIUM SERUM 4.3 mmol/L (3.5-5.1)
--- NOTE | 2018-10-01 08:41 | NUR ---
ADMINISTERED MEIDICTION PER EMAR. PATIENT EDUCATED OF NEED FOR MEDICATION. ADVERSE EFFECTS TO REPORT. PATIENT VERBALIZED UNDERSTNDING. QUESTIONS AND CONCERNS ADDRESSED. SAFETY PRECAUTIONS IN PLACE.
[2018-10-01 09:28] VITALS: BP 125/49
--- NOTE | 2018-10-01 10:00 | NUR ---
PATIENT IS STABLE NO APPARENTN SIGNS OF PAIN, SOB, OR RESPIRATORY DISTRESS. PATIENT DENIES OTHER NEEDS AT THIS TIME. SAFETY PRECAUTIONS IN PLACE.
--- NOTE | 2018-10-01 11:19 | NUR ---
ADMINISTERED MEIDICTION PER EMAR. PATIENT EDUCATED OF NEED FOR MEDICATION. ADVERSE EFFECTS TO REPORT. PATIENT VERBALIZED UNDERSTNDING. QUESTIONS AND CONCERNS ADDRESSED. SAFETY PRECAUTIONS IN PLACE.
--- NOTE | 2018-10-01 12:17 | NUR ---
PATIENT STABLE, NO APPARENT SIGNS OF PAIN, SOB, OR RESPIRATORY DISTRESS. RESTING COMFORTABLY IN BED. SMITH CATH IN PLACE DRAINING YELLOW URINE. DENIES OTHER NEEDS AT THIS TIME. SAFETY PRECAUTIONS IN PLACE.
--- NOTE | 2018-10-01 14:51 | NUR ---
PATIENT IS STABLE, RESTING COMFORTABLY IN BED. NO APPARENT SIGNS OF PAIN, SOB, OR RESPIRATORY DISTRESS. IV PATENT NO EDEMA OR ERYTHEMA NOTED AT SITE. SMITH IN PLACE. CALL LIGHT WITHIN REACH, BED IN LOW POSITION, SAFETY PRECAUTIONS IN PLACE.
--- NOTE | 2018-10-01 17:02 | NUR ---
PATIENT IS SATABLE NO APPARENT SIGNS OF PAIN, SOB, OR RESPIRATORY DISTRESS. ON ROOM AIR. RESTING COMFORTABLY IN BED. SMITH CATH IN PLACE, DRAINING YELLOW URINE. CALL LIGHT AND PHONE WITHIN REACH. BED IN LOW POSITION. QUESTIONS AND CONCERNS ADDRESSED, SAFETY PRECAUTIONS IN PLACE.
--- NOTE | 2018-10-01 17:18 | NUR ---
PATIENT C/O PAIN TO THE BACK AND BUTTOCKS. ADMINISTERED MEDICATION PER EMAR. ECPLAINED ON ADVERSE REACTIONS TO REPORT. SAFETY PRECAUTIONS IN PLACE.
[2018-10-01 17:47] VITALS: BP 122/48
--- NOTE | 2018-10-01 18:11 | NUR ---
PATIENT IS STABLE, NO APPARENT SIGNS OF PAIN, SOB, OR RESPIRATORY DISTRESS. ON ROOM AIR. RESTING COMFORTABLY IN BED. SMITH CATH IN PLACE. DRAINING YELLOW URINE. IV TO LAC INFUSING WELL, NS AT 100ML/HR. CALL LIGHT AND PHONE WITHIN REACH. BED IN LOW POSITION. QUESTIONS AND CONCERNS ADDRESSED. SAFETY PRECAUTIONS IN PLACE. WILL ENDORSE CARE TO SLUBBER TENDER NURSE.
--- NOTE | 2018-10-01 19:00 | NUR ---
PT RECEIVED FROM THE DAY SHIFT RN. PT IS ALERT AND ORIENTED X4, CALM AND COOPERATIVE WITH CARE. NO ACUTE DISTRESS NOTED. SAFETY AND COMFORT MEASURES MAINTAINED, BED IN LOWEST POSITION, CALL LIGHT WITHIN REACH. WILL CONTINUE TO MONITOR AT THIS TIME.
--- NOTE | 2018-10-01 19:00 | NUR ---
ENDORSED CARE TO NIGHT [facility] NURSE NEERAJ.
[2018-10-01 20:59] VITALS: BP 110/60
--- NOTE | 2018-10-01 23:04 | NUR ---
PT COMPLAINING OF BACK AND BUTTOCK PAIN PT STATES PAIN IS 7/10 AND IS A SHARP PAIN WITH MOVEMENT. PT GIVEN PRN NORCO. WILL CONTINUE TO MONITOR AT THIS TIME.
--- NOTE | 2018-10-02 01:02 | NUR ---
PT IS AWAKE AND WATCHING TV AT THIS TIME. NO ACUTE DISTRESS NOTED. PT HAS BEEN CALM AND COOPERATIVE WITH CARE, ALERT AND ORIENTED X4, SAFETY AND COMFORT MEASURES MAINTAINED, BED IN LOWEST POSITION, CALL LIGHT WITHIN REACH.
--- NOTE | 2018-10-02 01:59 | NUR ---
PT IS AWAKE AND WATCHING TV AT THIS TIME. NO ACUTE DISTRESS NOTED. PT HAS BEEN CALM AND COOPERATIVE WITH CARE, PT HAS BEEN ALERT AND ORIENTED X4, SAFETY AND COMFORT MEASURES MAINTAINED, BED IN LOWEST POSITION, CALL LIGHT WITHIN REACH.
--- NOTE | 2018-10-02 04:10 | NUR ---
PT IS RESTING IN BED WITH EYES CLOSED AND TELEVISION ON. NO ACUTE DISTRESS NOTED, NO S/S OF PAIN NOTED. SAFETY AND COMFORT MEASURES MAINTAINED, BED IN LOWEST POSITION, CALL LIGHT WITHIN REACH.
--- NOTE | 2018-10-02 05:08 | NUR ---
PT HAS SLEPT IN SHORT INTERVALS THROUGHOUT THE SHIFT. PT HAS BEEN CALM AND COOPERATIVE WITH CARE. PT IS CURRENTLY RESTING IN BED WITH EYES CLOSED AND THE TV ON. PT HAS BEEN ALERT AND ORIENTED X4, IV INFUSING AND INTACT. NO ACUTE DISTRESS NOTED. NO S/S OF PAIN NOTED. SAFETY AND COMFORT MEASURES MAINTAINED, BED IN LOWEST POSITION, CALL LIGHT WITHIN REACH. WILL ENDORSE CONTINUITY OF CARE TO THE ONCOMING RN.
[2018-10-02 05:26] VITALS: BP 137/63
[2018-10-02 06:27] LABS: BASOPHIL % 0.5 % (0-2); PLATELET COUNT 216 x10^3mcL (130-400); RED CELL DISTRIBUTION WIDTH 12.7 % (11.5-14.5)
[2018-10-02 06:39] LABS: CALCIUM 8.4 mg/dL (8.5-10.1); CARBON DIOXIDE 22.5 mmol/L (21-32); CREATININE SERUM 1.2 mg/dL (0.6-1.0); POTASSIUM SERUM 4.3 mmol/L (3.5-5.1)
--- NOTE | 2018-10-02 06:45 | NUR ---
PT COMPLAINING OF BACK PAIN AT THIS TIME. PT STATES PAIN IS A 7/10 AND IS SHARP PAIN. PRN NORCO GIVEN.
[2018-10-02 08:55] VITALS: BP 130/53
--- NOTE | 2018-10-02 09:13 | NUR ---
PATIENT SAT UP IN BED NO COMPLAINS. ALL PO MEDS ADMINISTERED. NO PROBLEM. NEEDS MET. PT ASK FOR RESHMA WILL ASK FURNITURE DETAILER ARCHANA FOR ORDER. CALL LIGHT IN REACH.
--- NOTE | 2018-10-02 12:20 | NUR ---
PATIENT RESTING IN BED NO COMPLAINS. ASKING RN TO CHECK HER SMITH STATED FEEL LEAKING, ASSESS SMITH INTACT AND PAD DRY NOTED. RE-ASSURE PATIENT. CALL LIGHT WITHIN REACH.
--- NOTE | 2018-10-02 14:11 | NUR ---
C/O 7/10 BACK PAIN, NORCO 1 TAB PO ADMINISTERED. STUDENT WITH INSTRUCTOR AT BEDSIDE INSERT NEW IV, LAC REMOVED BY STUDEN DUE TO LEAKING, NO EDEMA OR ERYTHEMIA NOTED. CALL LIGHT WITHIN REACH
--- NOTE | 2018-10-02 16:20 | NUR ---
PHYSICAL THERAPY DAILY NOTES CO-SIGN All documentation done by the Power Plant Electrician for 10/02/18 has been reviewed. I agree with the documentation. Reviewed/Co-Signed by: Adilia Mora PT Documentation Done by:LEE BERGERON PTA
[2018-10-02 16:31] VITALS: BP 131/53
--- NOTE | 2018-10-02 17:39 | NUR ---
PATIENT RESTING IN BED NO COMPLAINS. MARY ANN VAZQUEZ AT BEDSIDE TALK TO PATIENT WITH SNF PLACEMENT OPTION. NO NEEDS AT THIS TIME.
--- NOTE | 2018-10-02 18:30 | NUR ---
PATIENT RESTING IN BED REMAIN AWAKE, NO COMPLAIN. CALL LIGHT WITHIN REACH.
--- NOTE | 2018-10-02 19:30 | NUR ---
RECEIVED PT FROM DAY SHIFT RN. PT AAOX4. PT DENIES HEADAHCE OR DIZZINESS. BREATHING EVEN AND UNLABORED ON RA, WITH NO SOB NOTED. PT MED SURG. DENIES CHEST PAIN/PRESSURE. PT ABD DISTENDED. ACTIVE BOWEL SOUNDS. DENIES ABD PAIN/N/V. PT TOTAL CARE PT. IV PATENT, INFUSING WELL. NO SIGNS OF ACUTE DISTRESS. CALL BUTTON WITHIN REACH. SAFETY PRECAUTIONS IN PLACE. WILL CONTINUE TO MONITOR.
[2018-10-02 21:17] VITALS: BP 134/56
--- NOTE | 2018-10-03 00:44 | NUR ---
PT AWAKE. DENIES ANY PAIN AT THIS TIME. NO SIGNS OF DISTRESS NOTED. IV PATENT, INFUSING WELL. CALL BUTTON WITHIN REACH. SAFETY PRECAUTIONS IN PLACE. WILL CONTINUE TO MONITOR.
--- NOTE | 2018-10-03 02:15 | NUR ---
PT REPORTED HAVING BACK PAIN. MEDICATED PER EMAR. CALL BUTTON WITHIN REACH. SAFETY PRECAUTIONS IN PLACE. WILL CONTINUE TO MONITOR.
--- NOTE | 2018-10-03 05:03 | NUR ---
PT SLEPT MOST OF THE NIGHT WITH NO SIGNS OF DISTRESS NOTED. BREATHING EVEN AND UNLABORED WITH NO SOB NOTED. PT TURN AND REPOSITIONED EVERY 2HRS AND NEEDED. PT HAS A F/C DRAINING YELLOW URINE. PT REPORTED HAVING BACK PAIN, MEDICATED PER EMAR WITH SOME RELIEF. IV PATENT AND INFUSING WELL. NO SIGNS OF ACUTE DISTRESS NOTED. CALL BUTTON WITHIN REACH. SAFETY PRECAUTIONS IN PLACE. WILL CONTINUE TO MONITOR AND ENDORSE CARE TO DAY SHIFT RN.
[2018-10-03 05:32] VITALS: BP 132/58
[2018-10-03 06:07] LABS: BASOPHIL % 0.1 % (0-2); PLATELET COUNT 233 x10^3mcL (130-400); RED CELL DISTRIBUTION WIDTH 13.3 % (11.5-14.5)
[2018-10-03 06:19] LABS: CALCIUM 8.6 mg/dL (8.5-10.1); CARBON DIOXIDE 27.4 mmol/L (21-32); CREATININE SERUM 1.2 mg/dL (0.6-1.0); POTASSIUM SERUM 4.8 mmol/L (3.5-5.1)
--- NOTE | 2018-10-03 07:36 | NUR ---
NO SIGNS OF DISTRESS NOTED. ENDORSED CARE TO DAY SHIFT RN, ALL QUESTIONS ADDRESSED.
--- NOTE | 2018-10-03 08:45 | NUR ---
WOUND CARE EVALUATION NOTE: REASON FOR EVALUATION: LOW TANMAY SCALE AND BUTTOCKS WOUNDS SKIN ASSESSMENT DONE WITH THIS 68 Y/O FEMALE PT ADMITTED FROM HOME TO [facility] [place] WITH INITIAL DX DEHYDRATION. PT IS AWAKE ALERT AND ORIENTED X4. SKIN IS WARM AND DRY, BLE NO HAIR GROWTH, BLE +1 EDEMA. DORSAL PEDAL PULSES PRESENT AND NORMAL. CAPILLARY REFILLED < 2 SEC. X 10 TOES. F/C PATENT WITH CLEAR YELLOW URINE OUTPUT. INCONTINENT OF BOWEL. PLAN OF CARE DISCUSSED WITH PRIMARY RN AND PT. PT VERBALIZES UNDERSTANDING. INTEGUMENTARY: -INTERTRIGO TO ABDOMEN FOLDS REDNESS AND MOIST -FRICTION HEALING SCABS BILATERAL LATERAL LOWER ABDOMINAL WALL TO R/L UPPER LATERAL THIGHTS -SEVERE INCOTINENT ASSOCIATE DERMATITIS (IAD) TO: B/L GROINS EXTENDED TO PERINEUM, R/L INNER THIGHS, REDNESS WITH THIN FRAGILE SKIN -SEVERE IAD TO RIGHT AND LEFT INNER BUTTOCKS EXTENDED TO PERIANAL PARTIAL THICKNESS SKIN EROSIONS WITH LARGEST SIZE ON BUTTOCK GROOVE 2X1X0.2CM, WOUND BED IS PINK, CLEAN AND MOIST. NO ODOR. -IAD TO PERIANAL 2 MULTIPLE SMALL PARTIAL THICKNESS SKIN EROSIONS WOUND BED IS PINK, MOIST NO ODOR. -BLANCHABLE REDNESS TO SACROCOCCYX 2X2CM RECOMMENDATIONS: -KEEP SKIN DRY AND CLEAN AT ALL TIMES, PLEASE CHECK Q2H AND PRN FOR INCONTINENCY OF BOWEL -APPLY HYDRAGUARD TO: B/L GROINS EXTENDED TO PERINEUM, R/L INNER THIGHS, BILATERAL LATERAL LOWER ABDOMINAL WALL AND R/L UPPER LATERAL THIGHTS BID AND PRN IF SOILING -CLEANSE WITH SOAP AND WATER IAD AREA ON RIGHT AND LEFT INNER BUTTOCKS EXTENDED TO PERIANAL PARTIAL THICKNESS SKIN EROSIONS WITH LARGEST SIZE ON BUTTOCK GROOVE BID AND PRN IF SOILING -APPLY FORM DRESSING TO SACROCOCCY Q7 DAYS AND PRN IF SOILING PREVENTION -OFFLOAD BILATERAL HEELS BY PLACING PILLOWS UNDER CALVES UNLESS OTHERWISE CONTRAINDICATED -PRESSURE REDISTRIBUTION SURFACE THERAPY -TURN AND REPOSITION Q2H, OFFLOAD SACRALCOCCYX AND BUTTOCKS BY TURNING RIGHT AND LEFT -CONTINUE TO FOLLOW RD RECOMMENDATIONS ALL ABOVE RECOMMENDATIONS DISCUSSED WITH PRIMARY RN. WILL FOLLOW UP PT Q7-10 DAYS. PLEASE CONTACT WOUND CARE NURSE FOR ANY QUESTION AND CHANGE OF WOUND CONDITION.
[2018-10-03 08:57] VITALS: BP 116/55
--- NOTE | 2018-10-03 09:34 | NUR ---
CARA SEEN PATIENT AND ASSESS WOUND; PER CARA WOUND IS IMPROVED, CONT WITH ZGUARD AND COVER WOUND .
--- NOTE | 2018-10-03 09:44 | NUR ---
PATIENT SIT UP IN BED NO COMPLAIN, ALL PO MEDS ADMINISTERED. NEEDS MET. CALL LIGHT WITHIN REACH.
--- NOTE | 2018-10-03 12:37 | NUR ---
NORCO 1 TAB PO ADMINISTERED FOR 09/20 BACK PAIN, NEEDS ATTENDED. PATIENT WATCHING TV AT THIS TIME. LUNCH TRAY GIVEN BY KITCHEN. CALL LIGHT IN REACH
--- NOTE | 2018-10-03 13:28 | NUR ---
Initial Nutrition Assessment: / SHAWNA GARCÍA IA HR Dx: generalized weakness, dehydration PMHx: HTN, Severe bilateral knee osteoarthritis and fibromyalgia PSHx: None Labs: BUN 21H, CREAT 1.2H, TG 542H, CHOL 309H, LDL 175H Meds: Colace, Lipitor, Zestril, Tylenol, zofran Diet: Regular PO Intake: (10/03) breakfast 100%, (10/02) 100% all meals, (10/01) dinner 100%, lunch 50% Ht: 154.94cm (61") Wt: 75.7kg (166#) BMI: 31.6 kg/m2 Bed scale: 88kg IBW: 105# (48 kg) %IBW: 158 UBW: 165-170 lbs Age: 68/F Food Allergies: NKFA Skin: buttocks, perineal folds and inner thigh dermatitis Jayme: 12 Edema: BLE trace edema GI: Last BM: 09/24 Per H&P, Pt is a 68 YO female with PMH of HTN, Severe bilateral knee osteoarthritis and fibromyalgia came to the ED for generalized weakness, because of her knee problem she isn't able to get out of bed or walk. RDN Visit (10/03): Patient was alert and oriented. She said that she ate almost all of her breakfast this morning. Patient does not want any dietary restrictions as she said that she has not been eating well since last 1 month as she is bed bound. Patient is willing to consume Sandip for wound healing. FNS received consult for MASD buttocks, upper thigh on 10/01/18. Discussed recommendations with MANOLO Dean. Problem with: N/V/D/C: mild constipation Problems with: Chewing/Swallowing: none Current appetite: good Recent wt change: none %wt change: N/A Vitamin/Supplement use: Centrum MVI Special diet at home: regular Physical activity: bed bound Nutrition education given: Low fat, cardiac diet education was provided. Concepts like high fiber were emphasized. Patient verbalized understanding and did not have any questions at this time. Food-drug interactions: Colace- high fiber w/2852-6727 ml fluids Education given: yes Estimated Nutritional Needs Based on actual body weight 75.7 kg Energy: 1747-2353 kcal/d (25-30 kcal/kg) Protein: 75.7-90.8 g/d (1.0-1.2 g/kg)- preserve LBM, wounds Fluid: 0380-8741 ml/d (1 ml/kcal) or per doctor Nutrition Diagnosis 1. Increased nutrient needs related to increased metabolic demands as evidenced by MASD buttocks. Intervention 1. Recommend Sandip BID for wound healing. 2. Recommend continuing regular diet. Monitor/Evaluate Goal: PO intake at least 75% of estimated needs Monitor: PO intake, Labs, GI function F/U in 3-5 days as moderate risk
--- NOTE | 2018-10-03 13:29 | NUR ---
1. Recommend Sandip BID for wound healing. 2. Recommend continuing regular diet.
--- NOTE | 2018-10-03 14:50 | NUR ---
PATIENT SLEEPING AT THIS TIME. NO DISTRESS NOTED. CALL LIGHT WITHIN REACH.
--- NOTE | 2018-10-03 16:55 | NUR ---
PHYSICAL THERAPY DAILY NOTES CO-SIGN All documentation done by the Filament Cutter for 10/03/18 has been reviewed. I agree with the documentation. Reviewed/Co-Signed by: Red Sevilla PT Documentation Done by:LEE BERGERON PTA
[2018-10-03 17:18] VITALS: BP 131/71
--- NOTE | 2018-10-03 17:35 | NUR ---
PATIENT C/O 7/10 BACK PAIN ASKING FOR PAIN MED. INFORM PATIENT WILL CHECK IF DUE. DIANNA PROTECTIVE SERVICE CAME BY TO F/U ON PATIENT REGARDING TRANSITION. REFER TO MARY ANN.
--- NOTE | 2018-10-03 17:41 | NUR ---
NORCO 1 TAB PO GIVEN, ASSISTING PATIENT UP FOR DINNER, TRAY GIVEN BY KITCHEN. CALL LIGHT WITHIN REACH.
--- NOTE | 2018-10-03 18:39 | NUR ---
PATIENT AWAKEN AT THIS TIME, CLAIM PROCESSOR AT BEDSIDE PROVIDE NEEDS. CALL LIGHT WITHIN REACH. COMPLAINS NOT ABLE TO EAT MUCH, NOT HUNGRY. ENCOURAGE PATIENT TO TAKE TIME EATING.
--- NOTE | 2018-10-03 20:00 | NUR ---
PATIENT RECEIVED IN BED DURING BEDSIDE HANDS OFF WITH OUT GOING NURSE. PATIENT IS AAOX3, SPEECH CLEAR.BREATHING EVEN AND UNLABORED, ON ROOM AIR SAT 98%. DENIED CHEST PAINS, HR=79BPM, MED/SURG PATIENT. IV SITE TO LEFT HAND PATENT AND INTACT. PATIENT WITH GENERALIZED WEAKNESS, MAX ASSIST WITH ADL'S , TURN Q2HRS, SCD ON . EDEMA TO BLE. SMITH CATHETER DRAINING YELLOW UA, NO DEPENDENT LOOPS SMITH BAG OFF THE FLOOR.. SAFETY /FALL PRECAUTIONS MAINTAINED. WILL CONTINUE TO MONITOR.
[2018-10-03 20:39] VITALS: BP 152/70
--- NOTE | 2018-10-03 21:56 | NUR ---
SCHEDULED MEDS ADMINISTERED, PATIENT INFORMED ABOUT EACH MEDS ACTIONS AND PURPOSE PRIOR. TOOK PILLS WELL. COMPLAINED OF NECK,LEG AND BACK PAIN, RATED AT 6/10 MEDICATED PRN. MADE COMFORTABLE IN BED. WILL CONTINUE TO MONITOR.
--- NOTE | 2018-10-03 22:50 | NUR ---
HS CARE RENDERED, APPLIED CREAM TO ABDOMINAL FOLD, GROIN AND BACK AREA, OPTIFOAM DRESSING INTACT. TURNED AND REPOSITIONED.
--- NOTE | 2018-10-03 22:51 | NUR ---
PATIENT CHECKED THIS TIME, STATED PAIN IS SLWOLY SUBSIDING RATED AT 3/10. WILL CONTINUE TO MONITOR.
[2018-10-04 05:48] VITALS: BP 138/65
--- NOTE | 2018-10-04 06:42 | NUR ---
PATIENT SLEPT GOOD AND RESTED WELL DURING THE SHIFT. WAS TURNED Q2HRS KEPT HOB AT SEMI FOWLERS POSITION. COMPLAINED OF NECK, LEG AND BACK PAIN AND WAS MEDICATED RECEIVED RELIEF. IV SITE NO SIGN OF INFILTRATION. SMITH CATHETER CARE RENDERED BY COTTON FACTOR. SAFETY/FALL PRECAUTIONS MAINTAINED. WILL ENDORSE CONTINUITY OF CARE TO INCOMING NURSE.
[2018-10-04 06:45] LABS: CALCIUM 8.8 mg/dL (8.5-10.1); CARBON DIOXIDE 23.5 mmol/L (21-32); CREATININE SERUM 1.1 mg/dL (0.6-1.0)
--- NOTE | 2018-10-04 07:31 | NUR ---
BEDSIDE HANDS OFF PERFORMED WITH INCOMING NURSE RIVER-ISAAC.
--- NOTE | 2018-10-04 07:32 | NUR ---
BEDSIDE HANDS OFF PERFORMED WITH INCOMING NURSE RIVER-ISAAC.
--- NOTE | 2018-10-04 07:50 | NUR ---
RECEIVED PATIENT SITTING UP IN BED A/O X4, NO NEURO DEFICITS NOTED. DENIES CHEST PAIN, BREATHING EVEN AND UNLABBORED ON ROOM AIR, DENIES SOB, NO DISTRESS NOTED. DENIES ANY PAIN. IV TO LH INTACT INFUSING NS AT 100 ML/HR FREE FROM REDNESS AND INFILTRATION. PATIENT IS CALM WITH CARE. INSTRUCTED TO CALL FOR ASSISTANCE IF NEEDED, SAFETY PRECAUTIONS MAINTAINED. WILL MONITOR.
[2018-10-04 08:23] LABS: BASOPHIL % 0.4 % (0-2); PLATELET COUNT 200 x10^3mcL (130-400); RED CELL DISTRIBUTION WIDTH 13.3 % (11.5-14.5)
[2018-10-04] MEDS ORDERED: NORCO1 TA2 PO (08:42)
--- NOTE | 2018-10-04 08:55 | NUR ---
PATIENT SITTING UP IN BED, NO DISTRESS NOTED, AM MEDICATION GIVEN, TOLERATED WELL. P.T AT BEDSIDE. ALL NEEDS ATTENDED TO, SAFETY PRECAUTIONS MAINTAINED. WILL MONITOR.
[2018-10-04 09:35] VITALS: BP 133/68
--- NOTE | 2018-10-04 11:17 | NUR ---
PATIENT RESTING IN BED WITH EYES CLOSED, BREATHING EVEN AND UNLABBORED, NO DISTRESS NOTED. SAFETY PRECAUTIONS MAINTAINED. WILL MONITOR.
--- NOTE | 2018-10-04 13:52 | NUR ---
PHYSICAL THERAPY DAILY NOTES CO-SIGN All documentation done by the Merchandise Handler for 10/04/18 has been reviewed. I agree with the documentation. Reviewed/Co-Signed by: Adilia Mora PT Documentation Done by:LEE BERGERON PTA
--- NOTE | 2018-10-04 14:25 | NUR ---
PATIENT RESTING IN BED COMFORTABLY NO DISTRESS NOTED, REPOSITIONED AND MADE COMFORTABLE. ALL NEEDS ATTENDED TO, SAFETY PRECAUTIONS MAINTAINED. WILL MONITOR.
--- NOTE | 2018-10-04 16:50 | NUR ---
PATIENT RESTING IN BED COMFORTABLY, NO DISTRESS NOTED, VISITOR AT BEDSIDE. ALL NEEDS ATTENDED TO, SAFETY PRECAUTIONS MAINTAINED. WILL MONITOR.
[2018-10-04 17:52] VITALS: BP 128/62
--- NOTE | 2018-10-04 18:13 | NUR ---
PATIENT RESTING IN BED COMFORTABLY WATCHING TELEVISION, NO DISTRESS NOTED. NO ACUTE CHANGES NOTED DURING SHIFT. IV TO LH INTACT INFUSING IVF WELL FREE FROM REDNESS AND INFILTRATION. PATIENT IS CALM WITH CARE. INSTRUCTED TO CALL FOR ASSISTANCE IF NEEDED. SAFETY PRECAUTIONS MAINTAINED. WILL ENDORSE CARE TO ONCOMING NURSE.
--- NOTE | 2018-10-04 19:05 | NUR ---
REPORT RECEIVED FROM DAY SHIFT RN. PATIENT WAS SEEN AND IS RESTING COMFORTABLY IN BED. BREATHING EVEN ON ROOM AIR. UNLABORED. NO SOB OR RESP DISTRESS NOTED. DENIES CHEST PAIN. NO C/O PAIN. SMITH IN PLACE DRAINING PALE SUKHI URINE BY GRAVITY. OPTIFOAM TO SACRAL-COCCYX. ERYTHEMA NOTED TO BUTTOCK, ABD FOLDS, PERINEUM, AND PERIANAL AREA. HYDRAGUARD APPLIED. IV TO THE LEFT HAND INFUSING WELL. PATENT AND INTACT. NO REDNESS OR SWELLING NOTED. COMFORT AND SAFETY MEASURES IN PLACE. CALL LIGHT IS WITHIN REACH. BED IS LOCKED AND IN THE LOWEST POSITION. SIDE RAILS UP X2. CALL LIGHT IS WITHIN REACH. WILL CONTINUE TO MONITOR.
--- NOTE | 2018-10-04 20:37 | NUR ---
PATIENT CALLED C/O NAUSEA. SHE STATES "I FEEL SICK. I FEEL LIKE I'M GOING TO THROW UP". PROVIDED PATIENT WITH EMESIS BAG. AND ADMINISTERED ZOFRAN PRN PRESCRIBED. NO EMESIS NOTED. EDUCATED PATIENT THAT DROWSINESS MAY OCCUR. WILL CONTINUE TO MONITOR.
[2018-10-04 20:58] VITALS: BP 117/57
--- NOTE | 2018-10-04 21:28 | NUR ---
ADMINISTERED ALL SCHEDULED MEDS EXCEPTED CYMBALTA 30MG PO. DARLENE STATES SHE NORMALLYU TAKES 60MG ONCE A DAY, BUT THE DOCTOR INCREASED HER DOSE. SHE NOW ALSO TAKED 30MG AT NIGHT, BUT STATES SINCE THIS CHANGE SHE HAS BEEN FEELING NAUSEOUS. PATIENT REFUSED CYMBALTA 30MG PO. DENIES PAIN AT THIS TIME. STATES HE NAUSEA IS RESOLVING SLOWLY AFTER PRN ZOFRAN WAS ADMINISTERED. NO DISTRESS NOTED. SAFETY MEASURES IN PLACE. CALL LIGHT IS WITHIN REACH. WILL CONTINUE TO MONITOR.
--- NOTE | 2018-10-05 00:18 | NUR ---
PATIENT IS RESTING IN BED WITH EYES CLOSED. NO DISTRESS NOTED. BREATHING EVEN AND UNLABORED ON ROOM AIR. NO S/S OF PAIN NOTED. SMITH CATH IN PLACE DRAINING PALE YELLOW URINE BY GRAVITY. IVF INFUSING WELL. SAFETY MEASURES IN PLACE. CALL LIGHT IS WITHIN REACH. WILL CONTINUE TO MONITOR.
--- NOTE | 2018-10-05 02:16 | NUR ---
PATIENT IS RESTING IN BED WITH EYES CLOSED. NO DISTRESS NOTED. BREATHING EVEN AND UNLABORED ON ROOM AIR. IVF INFUSING WELL. NO S/S OF PAIN NOTED. SAFETY MEASURES IN PLACE. SMITH CATH DRAINING PALE YELLOW URINE BY GRAVITY. CALL LIGHT IS WITHIN REACH. WILL CONTINUE TO MONITOR.
[2018-10-05 05:10] VITALS: BP 113/52
--- NOTE | 2018-10-05 05:13 | NUR ---
PATIENT IS RESTING IN BED WITH EYES CLOSED AT THIS TIME. NO ACUTE CHANGES NOTED. BREATHING EVEN AND UNLABORED ON ROOM AIR. NO C/O PAIN THROUGHOUT THE NIGHT. C/O NAUSEA X1. MEDICATED WITH PRN ZOFRAN WITH GOOD RELIEF. IV TO THE LH INFUSING WELL. PATENT AND INTACT. NO REDNESS OR SWELLING NOTED. SMITH CATH IN PLACE DRAINING PALE YELLOW URINE BY GRAVITY. NOTED 1600 OUTPUT. SAFETY MEASURES IN PLACE. CALL LIGHT IS WITHIN REACH. WILL CONTINUE TO MONITOR AND ENDORSE CARE TO DAY SHIFT RN.
--- NOTE | 2018-10-05 08:00 | NUR ---
RECEIVED PATIENT ALERT AND ORIENTED TIMES FOUR. PATIENT IS ON BEDREST AND IS NON AMBULATORY. PATIENT HAS BEEN WITH EDEMA TO THE LOWER EXTREMTIES OF 1 PLUS AND HAS FOOT DROP AND SKIN TO THE FEET IS SCALEY WITH RENNER HUE TO THE BOTTOMS. PATIENT AHS BEEN ON IV FLUIDS BUT NOW THE IV FAILED. RESTARTED IN THE OPPOSING HAND AND TOLERATED WELL. PATIENT HAS BEEN ASSISTED WTIH ALL ADLS INDIATED. SHE HAS HISTORY OF FIBROMYALGIA AND WITH CHRONIC PAIN AND ON LYRICA AND TAKES NORCO AT HOME. DARLENE LINDER HX OF CAREGIVER WAS ILL AND COULD NOT COME TO SEE HER AND APPARENTLY NEEDED TO CALL 911 FOR ASSISTANCE AND WAS BROUGHT TO [facility] FOR CARE. SHE HAS SOME EXCORIATION TO THE GROIN, CALDERON AREA AND CHARE GIVEN WITH OINTMENT FOR PROTECTING THE SKIN FROM URINE AND STOOL. PATIENT HAS BEEN INCONTINENT OF BOTH. PATEINT ROSI OPTIFOAM TO THE COCCYX AND AIR MATTRESS IN PLACE. SHE IS TOTAL CARE AND HAS BEEN TURNED AND POSITIONED FREQUENTLY INDICATED. VITALS AT THIS TIME AT 99.1, 79, 18, 107/61, 76, 98%. PATIENT HAS BEEN WITH LABS WNL AND PATIENT HAS BEEN WAITING FOR PLACEMENT FOR HER REHAB AND CARE.
[2018-10-05 09:50] VITALS: BP 125/56
--- NOTE | 2018-10-05 10:00 | NUR ---
GAVE PAIN MEDICATION AFTER GETTING REORDERED. PATIENT STATES THE PAIN IS TO THE SHOULDERS, BACK AND NECK. WILL CONTINUE TO MONITOR FOR EFFECTIVENESS.
--- NOTE | 2018-10-05 11:24 | NUR ---
THE NORCO WAS EFFECTIVE AND PATIENT IS RESTING QUIETLY AT THIS TIME.
[2018-10-05 14:36] VITALS: BP 125/56
--- NOTE | 2018-10-05 16:19 | NUR ---
GAVE REPORT TO THE STAF FUNMI WHITTEN. PATIENT IS AWARE OF TRANSFER. ALL PAPERWORK COMPLETE DAND READY FOR HER TO SIGN. SHE IS TO HAVE PICUTRES TAKEN AND IV REMOVED ALONG WITH THE SMITH AT TIME OF DISCHARGE.
--- NOTE | 2018-10-06 07:14 | NUR ---
PHYSICAL THERAPY DAILY NOTES CO-SIGN All documentation done by the Latin Professor for 10/06/18 has been reviewed. I agree with the documentation. Reviewed/Co-Signed by: Adilia Mora PT Documentation Done by:LEE BERGERON PTA FOR 10/05/18
== END 2018-10-05 17:27 | DRG 640 ==
LOC: ED 16:16 → MU 19:17
PROVIDERS: Emergency Medicine; General Practice; ADMIT Internal Medicine
DX: E86.0 Dehydration (principal); N17.0 Acute kidney failure with tubular necrosis; E87.0 Hyperosmolality and hypernatremia; M79.7 Fibromyalgia; F32.9 Major depressive disorder, single episode, unspecified; I10 Essential (primary) hypertension; M17.0 Bilateral primary osteoarthritis of knee; L89.321 Pressure ulcer of left buttock, stage 1; L89.311 Pressure ulcer of right buttock, stage 1; L89.891 Pressure ulcer of other site, stage 1; E66.9 Obesity, unspecified; E87.8 Other disorders of electrolyte and fluid balance, not elsewhere classified; E78.5 Hyperlipidemia, unspecified; L98.419 Non-pressure chronic ulcer of buttock with unspecified severity; F17.210 Nicotine dependence, cigarettes, uncomplicated
CPT/HCPCS: 83880; 84439; 97110-GP; 97530-GP; G0378; J1885; J2405; J7030; Q0092